=== PATIENT | female | born 1995 | race Caucasian/White ===

== ENCOUNTER 2020-10-10 02:21 | Inpatient (IN) | payer BC, OTHER ==
[2020-10-10 03:11] VITALS: BMI 24.0
[2020-10-10] MEDS ORDERED: Lidocaine 1% (PF) 30 ML VIAL SC PRN (03:32)
[2020-10-10] MEDS ORDERED: Ondansetron PF 4 MG/2 ML Vial IVP PRN ×3 (03:32→16:29)
[2020-10-10] MEDS ORDERED: Ibuprofen 800 MG TAB PO PRN (03:32)
[2020-10-10] MEDS ORDERED: HYDROcodone/Acetaminophen 5/325 mg Tablet PO PRN ×4 (03:32→16:29)
[2020-10-10] MEDS ORDERED: Meperidine HCl/PF 25 MG/ML VIAL IM/IV PRN (03:32)
[2020-10-10] MEDS ORDERED: Promethazine HCl 25 MG/ML VIAL IM PRN ×2 (03:32→11:57)
[2020-10-10] MEDS ORDERED: Acetaminophen 500 MG TAB PO PRN (03:32)
[2020-10-10] MEDS ORDERED: hydrALAZINE 20 MG/ML VIAL SLOW IVP PRN ×2 (03:32→16:29)
[2020-10-10] MEDS ORDERED: NS / Oxytocin 40 units/1000ml 1,000 ML IV PRN (03:32)
--- NOTE | 2020-10-10 03:37 | PDOC.LDHP ---
Labor and Delivery H&P Chief complaint: contractions HPI: 24 yo WF presents c/o UCs since earlier this PM. Denies SROM. Current gestational age (weeks): 38 Due date: 10/18/20 Dating criteria: last menstrual period Grav: 1 Para: 0 OB History Details: PNC with Dr. elder w/o complications. Current complications: none Abnormal US findings: No Past Medical History: none Current medications: pre-marino vitamins Previous surgical history: none Social history: none - Physical Exam Vital signs reviewed and normal: yes General: breathing through contractions Heart: RRR Lungs: CTAB Abdomen: gravid Extremeties: trace edema FHT: category 1 - Vaginal Exam cm dilated: 3 Effacement: 90% Station: -1 - OB Labs GBS: negative - Assessment L&D Assessment: term patient in labor - Plan Plan: admit to L&D, informed consent obtained, anesthesia consult for pain management, other (Admit per Dr. Elder)
[2020-10-10] MEDS ORDERED: NS w/ Oxytocin 30 units 500 ML IVPB SCH (03:45)
[2020-10-10 04:27] LABS: Hemoglobin 12.1 g/dL (12.0-16.0); Mean Corpuscular HGB CONC 34.1 g/dL (32.0-36.0); Mean Corpuscular Hemoglobin 28.6 pg (27.0-31.0); Mean Platelet Volume 8.9 fL (7.4-10.4); Platelet Count 191 thou/uL (130-400); RBC Distribution Width 12.7 % (11.5-14.5); Red Blood Cell (RBC) Count 4.22 mill/uL (4.20-5.40); White Blood Cell (WBC) Count 11.8 thou/uL (4.8-10.8)
[2020-10-10] MEDS ORDERED: Lactated Ringer's 1,000 ML IV SCH (04:45)
[2020-10-10] MEDS: Lactated Ringer's 1,000 ML IV SCH ×2 (04:54→20:36)
[2020-10-10 05:04] LABS: HBSAg Index 0.13 S/CO (0-0.99); Hep B Surf Ag Non-Reactive S/CO (NonReactive)
[2020-10-10 06:15] LABS: Syphilis Antibody Nonreactive (Nonreactive); Syphilis Antibody Index 0.05 S/CO (<1.00 Non-Reactive)
[2020-10-10] MEDS: Butorphanol Tartrate 1 MG/ML VIAL SLOW IVP PRN ×2 (08:59→10:50)
[2020-10-10] MEDS ORDERED: Bupivacaine 0.25% HCL 30 ML VIAL ONE (09:11)
[2020-10-10 10:04] LABS: SARS-CoV-2 MS2 Positive; SARS-CoV-2 N Gene Negative; SARS-CoV-2 S Gene Negative; SARS-CoV-2 by NAA Not Detected (NotDetected); SARS-CoV-2 orf1ab Negative
[2020-10-10] MEDS ORDERED: Bupivacaine 0.5% 20 ML, fentaNYL Citrate/PF 400 MCG in Sodium Chloride 0.9% 72 ML EPIDURAL SCH (10:45)
[2020-10-10] MEDS ORDERED: DISCONTINUE ALL PREVIOUS NARCOTICS FS SCH (10:45)
[2020-10-10] MEDS ORDERED: Lactated Ringer's 500 ML IV PRN (11:57)
[2020-10-10] MEDS ORDERED: diphenhydrAMINE 50 MG/ML VIAL IVP PRN (11:57)
[2020-10-10] MEDS ORDERED: Acetaminophen 325 MG TAB PO PRN (11:57)
[2020-10-10] MEDS ORDERED: Naloxone HCl 0.4 mg/ml Vial IVP PRN ×2 (11:57)
[2020-10-10] MEDS ORDERED: ePHEDrine 50 MG/ML VIAL SLOW IVP PRN (11:57)
[2020-10-10] MEDS ORDERED: Communication Order-Pharmacy FS SCH (12:00)
[2020-10-10] MEDS ORDERED: Fentanyl 4 mcg/Bupivacaine 0.1% Cassette 100 ML EPIDURAL SCH (12:00)
[2020-10-10] MEDS ORDERED: Zolpidem Tartrate 5 MG TAB PO PRN (16:29)
[2020-10-10] MEDS ORDERED: Bisacodyl 10 MG SUPP PR PRN (16:29)
[2020-10-10] MEDS ORDERED: Milk Of Magnesia 30 ML UDCUP PO PRN (16:29)
[2020-10-10] MEDS ORDERED: Lanolin Ointment 7 GM TUBE TOP PRN (16:29)
[2020-10-10] MEDS ORDERED: Misoprostol 200 MCG TAB VAG PRN (16:29)
[2020-10-10] MEDS ORDERED: Preparation H Ointment 28 GM TUBE PR PRN (16:29)
[2020-10-10] MEDS ORDERED: Adacel (T-DAP) 0.5 ML SYRINGE IM ONE (16:29)
[2020-10-10] MEDS ORDERED: diphenhydrAMINE 25 MG CAP PO PRN (16:29)
[2020-10-10] MEDS ORDERED: Benzocaine-Menthol 82.5 ML CAN TOP PRN (16:29)
[2020-10-10] MEDS ORDERED: NS / Oxytocin 40 units/1000ml 1,000 ML IV SCH (16:30)
[2020-10-10] MEDS: Ferrous Sulfate 325 MG TAB PO SCH (20:36)
[2020-10-10] MEDS ORDERED: FLU VACC QS2020-21(6MOS UP)/PF 60 MCG/0.5 ML SYRINGE IM ONE (21:00)
[2020-10-10] MEDS: Docusate Calcium (SURFAK) 240 MG CAP PO SCH (21:15)
[2020-10-10] MEDS: Ibuprofen 800 MG TAB PO SCH (21:15)
[2020-10-11] MEDS: Ibuprofen 800 MG TAB PO SCH ×2 (05:33→14:29)
[2020-10-11 06:31] LABS: Hemoglobin 11.4 g/dL (12.0-16.0); Mean Corpuscular HGB CONC 32.6 g/dL (32.0-36.0); Mean Corpuscular Hemoglobin 27.9 pg (27.0-31.0); Mean Corpuscular Volume 85.8 fL (78.0-98.0); Mean Platelet Volume 8.6 fL (7.4-10.4); Platelet Count 193 thou/uL (130-400); RBC Distribution Width 13.1 % (11.5-14.5); Red Blood Cell (RBC) Count 4.09 mill/uL (4.20-5.40); White Blood Cell (WBC) Count 13.4 thou/uL (4.8-10.8)
[2020-10-11] MEDS: Ferrous Sulfate 325 MG TAB PO SCH ×2 (07:31→15:52)
[2020-10-11] MEDS: Docusate Calcium (SURFAK) 240 MG CAP PO SCH (08:51)
[2020-10-11] MEDS ORDERED: Prenatal Vitamin 1 TAB PO SCH (09:00)
[2020-10-11 17:59] VITALS: BP 110/59; TEMP 97.9
== END 2020-10-11 18:25 | disposition home or self-care (01) | DRG 807 ==
LOC: L&D/OP 02:21 → L&D 04:05 → 3SW 18:38
PROVIDERS: ADMIT Obstetrics & Gynecology; ATTEND Obstetrics & Gynecology
PROC: 10E0XZZ Delivery of Products of Conception, External Approach (ICD-10-PCS; principal; 2020-10-10)
PROC: 10907ZC Drainage of Amniotic Fluid, Therapeutic from Products of Conception, Via Natural or Artificial Opening (ICD-10-PCS; 2020-10-10)
PROC: 0HQ9XZZ Repair Perineum Skin, External Approach (ICD-10-PCS; 2020-10-10)
DX: O70.0 First degree perineal laceration during delivery (principal); Z37.0 Single live birth; Z20.828 Contact with and (suspected) exposure to other viral communicable diseases; Z3A.38 38 weeks gestation of pregnancy
CPT/HCPCS: 36415; 51702; 85027; 86780; 86850; 86870; 86900; 86901; 87340; 87635; 99285; J0595; J3010; J3490; S0020; U0003